=== PATIENT | male | born 2000 | race Caucasian/White ===

== ENCOUNTER 2021-02-12 23:18 | Emergency (ER) | payer BC, OTHER ==
[2021-02-12 23:29] VITALS: BP 126/77; PULSE 58; TEMP 97.8; BMI 32.7
== END 2021-02-13 03:04 | disposition home or self-care (01) ==
LOC: FER 23:18
DX: S00.531A Contusion of lip, initial encounter (principal); S00.33XA Contusion of nose, initial encounter; W21.03XA Struck by baseball, initial encounter
CPT/HCPCS: 70450-TC; 70486-TC; 99284-25